=== PATIENT | male | born 2005 | race Hispanic/Latino ===

== ENCOUNTER 2024-02-11 22:38 | Emergency (ER) | payer OTHER, SELFPAY ==
[2024-02-11 22:41] VITALS: BP 140/72
--- NOTE | 2024-02-11 23:41 | ED.GENMED ---
History of Present Illness
<MATT Sanders - Last Filed: 02/11/24 23:56>
General
Chief Complaint: Skin Problem
Source: patient and family (mother)
Exam Limitations: none
Time Seen by Provider: 02/11/24 23:26
Nursing documentation reviewed up to this point in time: agreed with
History of Present Illness
History of Present Illness:
Pt is a 18 y/o M who presents with a pustule with surrounding erythema on the dorsum of his left foot x1 day. He noticed a similar pustule with erythema on his distal right forearm today. The pt noted that he participates in [employer] and
noticed it after practice. The erythematous area on his left foot has worsened since yesterday. Today, the area on the left foot is about 3-4 cm in diameter with a white pustule in the center and 2 red streaks going up his leg which they did not
notice until today. He reports that there is a 1/10 pain at rest and at worse a 3/10 with walking and light pressure. He has tried rubbing alcohol and neosporin without relief. The erythematous area on the right forearm has associated pruritus.
There is associated swelling in both areas. Denies fever, SOB, headache, fatigue, warmth, or weakness. The pt stated that his brother had 2 prior episodes of MRSA after BJJ which appears similar to his presentation today and was treated with
Mupirocin ointment. The pt has an Amoxicillin allergy.
Past History
<MATT Sanders - Last Filed: 02/11/24 23:56>
Past History
ED Past Medical History: None
ED Past Surgical History: None
Social History
Tobacco: Non-smoker
Alcohol: None
Drug: None
Living: with family
Family History
Family History: Diabetes
Review of Systems
<MATT Sanders - Last Filed: 02/11/24 23:56>
Review of Systems
Allergies reviewed?: Yes
Constitutional: Reports no symptoms
EENT: Reports no symptoms
Respiratory: Reports no symptoms
Cardiac: Reports no symptoms
ABD/GI: Reports no symptoms
: Reports no symptoms
Musculoskeletal: Reports no symptoms
Skin: Reports itching and other (erythema on left foot and right forearm)
Neurological: Reports no symptoms
Endocrine: Reports no symptoms
Hematologic/Lymphatic: Reports no symptoms
Psychiatric: Reports no symptoms
Phy Exam
<MATT Sanders - Last Filed: 02/11/24 23:56>
General Physical Exam
General Presentation: well appearing and no apparent distress
General age: appears stated age
General Skin: warm and dry
General Habitus: normal
General Mental: alert
General Hydration: appears well hydrated
ENT Exam
ENT Exam: neck supple
Eye Exam
Eye Exam: cornea clear and conjunctiva normal
Cardiovascular Exam
Cardiovascular Exam: regular rate/rhythm and normal peripheral pulses
Pulmonary Exam
Pulmonary Exam: lungs clear, no respiratory distress and chest non tender
Gastrointestinal Exam
Gastrointestinal Exam: non tender, soft and non distended
Neurological Exam
Neurological Exam: alert, oriented x3, CN II-XII intact, no motor deficits, normal reflexs, no sensory deficits and speech normal
Musculoskeletal Exam
Musculoskeletal Exam: full ROM and neuro vasc intact
Skin Exam
Skin Exam: erythema, redness and tenderness (3-4 cm erythematous area with center pustule on dorsum of left foot; 1 cm erythematous area with center pustule on distal right forearm)
Psychiatric Exam
Psychiatric Exam: normal mood/affect
Course
<MATT Sanders - Last Filed: 02/11/24 23:56>
Orders/Labs/Results
Orders:
Orders
02/12/24 00:33
Sulfamethox./Trimethoprim Ds [Bactrim Ds 800 mg/160 mg] 1 tablet PO NOW STA
02/12/24 00:36
Mupirocin [Bactroban 2% Ointment] See Dose Instructions NASAL NOW STA
Vital Signs
Initial and Last Documented VS:
Initial Vital Signs
Temp Pulse BP Pulse Ox
98.3 F 63 140/72 98
02/11/24 22:41 02/11/24 22:41 02/11/24 22:41 02/11/24 22:41
Last Documented Vital Signs
Temp Pulse Resp BP Pulse Ox
98.3 F 63 16 140/72 98
02/11/24 22:41 02/11/24 22:41 02/11/24 23:59 02/11/24 22:41 02/11/24 22:41
<Ra Beltran DO - Last Filed: 02/12/24 00:53>
Orders/Labs/Results
Orders:
Orders
02/12/24 00:33
Sulfamethox./Trimethoprim Ds [Bactrim Ds 800 mg/160 mg] 1 tablet PO NOW STA
02/12/24 00:36
Mupirocin [Bactroban 2% Ointment] See Dose Instructions NASAL NOW STA
Vital Signs
Initial and Last Documented VS:
Initial Vital Signs
Temp Pulse BP Pulse Ox
98.3 F 63 140/72 98
02/11/24 22:41 02/11/24 22:41 02/11/24 22:41 02/11/24 22:41
Last Documented Vital Signs
Temp Pulse Resp BP Pulse Ox
98.3 F 63 16 140/72 98
02/11/24 22:41 02/11/24 22:41 02/11/24 23:59 02/11/24 22:41 02/11/24 22:41
<MATT Sanders - Last Filed: 02/11/24 23:56>
MDM/Problems Addressed
Differential Diagnosis Includes:
Cellulitis
<MATT Sanders - Last Filed: 02/11/24 23:56>
*Critical Care Note
Total Time (30-74mins, 75-104mins- exclusive of procedures): Not Applicable
ED Attending Note
<MATT Sanders - Last Filed: 02/11/24 23:56>
-
Portions of this chart may have been created with voice recognition software.� Occasional wrong word or��sound alike� substitutions may have occurred due to the inherent limitations of voice recognition software.
<Ra Beltran DO - Last Filed: 02/12/24 00:53>
ED Attending Note
Patient seen and examined by attending physician: Yes
ED Attending Note:
18-year-old male presents to the emergency department with erythema on the dorsum of his foot for the last day and erythema on his right lateral forearm since today. There are small pustules in the center of the erythema. Denies fever or chills.
He does [place] ju[employer] and has had MRSA in the past. Denies chest pain or shortness of breath. Reports no other rash. Patient was seen in conjunction with the PA student. I have reviewed and agree with the history and treatment plan
presented. On my independent physical exam, patient is awake, alert, and oriented x3. Pustule and small amount of cellulitis on foot and right wrist. Will give Bactroban and Bactrim. Patient to be discharged home with strict return to ER
instructions.
Discharge Plan
Departure
Patient Disposition: Home (Routine Discharge)
Date of Disposition: 02/12/24
Time of Disposition: 00:41
Patient with high blood pressure during this ER visit?: Yes
Condition: Good
Discharge Problem:
Cellulitis
Instructions: Skin Rash (DC), Wound Care (DC), Cellulitis (Skin Infection), Adult (DC), BLOOD PRESSURE
Prescriptions:
New
mupirocin 2 % ointment
1 applic topical BID 10 Days Qty: 22 0RF
sulfamethoxazole-trimethoprim [Bactrim DS] 800-160 mg tablet
1 tab PO BID Qty: 14 0RF
Referrals:
Shekhar Thorne DO [Family Provider] -
Activity Restrictions/Additional Instructions:
Your prescriptions were sent electronically to the pharmacy that you specified.
It was a pleasure meeting you and taking part in your care. We hope for your continued healing and wellness.
Please read discharge instructions in their entirety. However, they are for general education and may not describe your exact diagnosis at discharge. Information on your ER visit and medical conditions were discussed with you along with appropriate
follow up information...
If indicated, please take your medications as instructed and indicated on discharge paperwork.
Please schedule a follow up appointment as directed. Call to schedule an appointment
Please return to the emergency department with ANY change in, persisting, or worsening of symptoms. If any of your symptoms do not improve, or persist, or become more severe within 6-12 hours, please return to the emergency department for further
care.
Please return to the emergency department if you develop a headache, neck pain/stiffness, fever greater than 100.4F, chest pain, shortness of breath, persistent nausea, vomiting, slurred speech, difficulty walking, numbness/tingling, weakness, signs
of infection or any other symptoms that are worrisome to you.
If you have any questions or concerns please do not hesitate to call the Hospital at or E-mail me directly at [email or web address]
Interventions
Interventions:
*Risk Screen - Suicide Last Done: 02/11/24 23:02
*General Assessment Last Done: 02/11/24 23:02
*Neglect/Abuse Screening Last Done: 02/11/24 23:02
ED- Fall Risk Assessment Last Done: 02/11/24 23:05
*ED COVID-19 Vaccine History Last Done: 02/11/24 23:02
ED-Skin Assessment Last Done: 02/11/24 23:02
Discharge Date and Time
Print Language: GREEK
[2024-02-12] MEDS: BACTRIM DS 800 MG/160 MG 1 TABLET PO (01:24)
[2024-02-12] MEDS: BACTROBAN 2% OINTMENT 1 APPLIC NASAL (01:24)
== END 2024-02-12 01:29 | disposition home or self-care (01) ==
LOC: EMR 22:38
PROVIDERS: EMERGENCY PHYSICIAN Student in an Organized Health Care Education/Training Program; FAMILY PHYSICIAN Family Medicine
DX: L03.116 Cellulitis of left lower limb (principal); L03.113 Cellulitis of right upper limb; L29.9 Pruritus, unspecified; M79.89 Other specified soft tissue disorders; R03.0 Elevated blood-pressure reading, without diagnosis of hypertension; Z88.0 Allergy status to penicillin; Z86.14 Personal history of Methicillin resistant Staphylococcus aureus infection
CPT/HCPCS: 99283